=== PATIENT | female | born 2000 | race Two or more races ===

== ENCOUNTER 2022-12-18 21:32 | Inpatient (IN) | payer MEDICAID, OTHER ==
[~2022-12-18] VITALS: Ht 157.5 cm; Wt 95.8 kg
[2022-12-18] MEDS ORDERED: SODIUM CHLORIDE 0.9% 1,000 ML IV ONE (22:30)
[2022-12-18] MEDS ORDERED: ONDANSETRON HCL 4 MG/2 ML VIAL IV ONE (22:30)
[2022-12-18 22:40] LABS: Basophils # (auto) 0 10 ^3/uL (0-0.2); Basophils % (auto) 0.4 % (0.0-2.0); Eosinophils # (auto) 0.1 10 ^3/uL (0-0.8); Hematocrit 39.7 % (36.0-46.0); Hemoglobin 13.4 g/dL (12.2-16.2); Lymphocytes # (auto) 3.1 10 ^3/uL (0.4-5.4); Lymphocytes % (auto) 29.3 % (10.0-50.0); Mean Corpuscular Hemoglobin 28.9 pg (28.0-32.0); Mean Corpuscular Hgb Conc. 33.9 g/dL (32.0-36.0); Mean Corpuscular Volume 85.4 fL (80.0-100.0); Monocytes # (auto) 0.7 10 ^3/uL (0-1.3); Monocytes % (auto) 6.6 % (0.0-12.0); Neutrophils # (auto) 6.6 10 ^3/uL (1.6-8.6); Neutrophils % (auto) 62.7 % (37.0-80.0); Red Blood Cells 4.64 10^6/uL (4.0-5.20); Red Cell Distribution Width 13.4 % (11.8-14.3); White Blood Cell 10.5 10^3/uL (4.4-10.8)
[2022-12-18 22:55] LABS: Albumin 3.7 g/dL (3.4-5.0); BUN/Creatinine Ratio 8.3; Potassium 4.3 mmol/L (3.5-5.1)
[2022-12-18 22:58] LABS: Bilirubin, Total 0.6 mg/dL (0.2-1.0); INR 0.98 (0.9-1.15)
[2022-12-19 00:17] LABS: Urine Bacteria FEW /hpf (None Seen); Urine Blood Negative /uL (Negative); Urine Specific Gravity 1.012 (1.001-1.035); Urine WBC 3 /hpf (0 - 5)
[2022-12-19] MEDS ORDERED: SODIUM CHLORIDE 0.9% 1,000 ML IV ONE (00:45)
[2022-12-19 01:33] LABS: Basophils # (auto) 0.1 10 ^3/uL (0-0.2); Basophils % (auto) 0.4 % (0.0-2.0); Eosinophils # (auto) 0.1 10 ^3/uL (0-0.8); Eosinophils % (auto) 0.4 % (0.0-7.0); Hematocrit 36.9 % (36.0-46.0); Hemoglobin 12.7 g/dL (12.2-16.2); Lymphocytes # (auto) 2.6 10 ^3/uL (0.4-5.4); Lymphocytes % (auto) 18.8 % (10.0-50.0); Mean Corpuscular Hemoglobin 29.7 pg (28.0-32.0); Mean Corpuscular Hgb Conc. 34.4 g/dL (32.0-36.0); Mean Corpuscular Volume 86.3 fL (80.0-100.0); Monocytes # (auto) 0.8 10 ^3/uL (0-1.3); Monocytes % (auto) 5.5 % (0.0-12.0); Neutrophils # (auto) 10.3 10 ^3/uL (1.6-8.6); Neutrophils % (auto) 74.9 % (37.0-80.0); Red Blood Cells 4.28 10^6/uL (4.0-5.20); White Blood Cell 13.8 10^3/uL (4.4-10.8)
[2022-12-19 01:48] LABS: Partial Thromboplastin Time 26.8 sec (24.6-33.4)
[2022-12-19] MEDS ORDERED: MORPHINE SULFATE INJ 2 MG/ml SYRG IV ONE (04:30)
[2022-12-19] MEDS ORDERED: ACETAMINOPHEN 325 MG TAB PO PRN (06:00)
[2022-12-19] MEDS ORDERED: cefTRIAXone 1GM/50ML D5W 50 ML IV ONE (06:00)
[2022-12-19] MEDS ORDERED: DOCUSATE SOD 100 MG CAP PO PRN (06:00)
[2022-12-19] MEDS ORDERED: ONDANSETRON HCL 4 MG/2 ML VIAL IV PRN ×2 (06:00→09:00)
[2022-12-19] MEDS ORDERED: D5W/SOD CHLO 0.9% 1,000 ML IV SCH (06:00)
[2022-12-19] MEDS ORDERED: NITROGLYCERIN 0.4 MG SL TAB SL PRN (06:15)
[2022-12-19] MEDS ORDERED: MORPHINE SULFATE INJ 2 MG/ml SYRG IV PRN (06:15)
[2022-12-19] MEDS ORDERED: IBUP800T27 PO (07:48)
[2022-12-19] MEDS ORDERED: DOCU-94 PO (07:48)
[2022-12-19] MEDS ORDERED: HYDR-4902 PO (07:48)
[2022-12-19] MEDS ORDERED: ONDA-144 PO (07:48)
[2022-12-19] MEDS ORDERED: MIDAZOLAM HCL 2MG/2ML 2ml VIAL (1mg/ml) ONE (07:49)
[2022-12-19] MEDS ORDERED: fentaNYL CITRATE 100 MCG/2 ML VL ONE (07:49)
[2022-12-19] MEDS ORDERED: MEPERIDINE HCL (50 MG/ML) 1 ML VIAL ONE (07:49)
[2022-12-19 07:56] LABS: Basophils # (auto) 0 10 ^3/uL (0-0.2); Basophils % (auto) 0.3 % (0.0-2.0); Eosinophils # (auto) 0.1 10 ^3/uL (0-0.8); Eosinophils % (auto) 0.6 % (0.0-7.0); Hematocrit 39.8 % (36.0-46.0); Hemoglobin 13.3 g/dL (12.2-16.2); Lymphocytes # (auto) 3.2 10 ^3/uL (0.4-5.4); Lymphocytes % (auto) 28.4 % (10.0-50.0); Mean Corpuscular Hemoglobin 28.5 pg (28.0-32.0); Mean Corpuscular Hgb Conc. 33.4 g/dL (32.0-36.0); Mean Corpuscular Volume 85.3 fL (80.0-100.0); Monocytes # (auto) 0.7 10 ^3/uL (0-1.3); Monocytes % (auto) 5.9 % (0.0-12.0); Neutrophils # (auto) 7.3 10 ^3/uL (1.6-8.6); Neutrophils % (auto) 64.8 % (37.0-80.0); Nucleated Red Blood Cells % 0.1 %; Red Blood Cells 4.67 10^6/uL (4.0-5.20); Red Cell Distribution Width 12.9 % (11.8-14.3); White Blood Cell 11.3 10^3/uL (4.4-10.8)
[2022-12-19] MEDS ORDERED: RHO (D) IMMUNE GLOBULIN 300 MCG INJ IM PRN (08:00)
[2022-12-19 08:07] LABS: Calcium 8.8 mg/dL (8.5-10.1); Potassium 3.7 mmol/L (3.5-5.1)
[2022-12-19 08:14] LABS: Albumin 3.8 g/dL (3.4-5.0); BUN/Creatinine Ratio 6.3; Bilirubin, Total 0.8 mg/dL (0.2-1.0); Total Protein 7.1 g/dL (6.4-8.2)
[2022-12-19] MEDS ORDERED: SUCCINYLCHOLINE CHLORIDE 20 MG/ML 10ML VIAL IV ONE (08:34)
[2022-12-19] MEDS ORDERED: PROPOFOL 10 MG/ML 20 ML IV ONE (08:51)
[2022-12-19] MEDS ORDERED: ONDANSETRON HCL 4 MG/2 ML VIAL ONE (08:51)
[2022-12-19] MEDS ORDERED: DexAMETHasone SOD PHOS 10MG/1ML VIAL INJ ONE (08:51)
[2022-12-19] MEDS ORDERED: SUGAMMADEX 200mg/2ml Vial (100MG/ML) IV ONE (08:56)
[2022-12-19] MEDS ORDERED: METOCLOPRAMIDE HCL 5MG/ml INJ 2ml VIAL IV PRN (09:00)
[2022-12-19] MEDS ORDERED: ePHEDrine SULFATE 50 MG/ML AMP IV PRN (09:00)
[2022-12-19] MEDS ORDERED: MIDAZOLAM HCL 2MG/2ML 2ml VIAL (1mg/ml) IV PRN (09:00)
[2022-12-19] MEDS ORDERED: LABETALOL HCL 5 MG/ML 4ML SYRINGE IV PRN (09:00)
[2022-12-19] MEDS ORDERED: MORPHINE SULFATE 4 MG/ML SYR/VIAL IV PRN (09:00)
[2022-12-19] MEDS: HYDROmorphone HCL 2 MG/ML VL/or syr IV PRN ×6 (09:54→17:33)
[2022-12-19] MEDS: HYDROcodone-ACET 5/325MG TAB PO PRN ×2 (12:00→22:25)
[2022-12-19] MEDS: SODIUM CHLORIDE 0.9% 1,000 ML IV SCH ×2 (12:06→14:12)
[2022-12-19] MEDS: METOCLOPRAMIDE HCL 5MG/ml INJ 2ml VIAL IV PRN ×2 (12:27→20:36)
[2022-12-19 13:00] VITALS: BP 114/73
[2022-12-19] MEDS: ONDANSETRON HCL 4 MG/2 ML VIAL IV PRN ×2 (14:11→18:06)
[2022-12-19] MEDS: ceFAZolin 1GM/50ML 50 ML IV SCH ×2 (14:18→21:18)
[2022-12-19] MEDS ORDERED: SERT50TA PO (14:24)
[2022-12-19 17:00] VITALS: BP 122/57
[2022-12-19 20:00] VITALS: BP 113/62
[2022-12-19 21:06] LABS: Basophils # (auto) 0.1 10 ^3/uL (0-0.2); Basophils % (auto) 0.7 % (0.0-2.0); Eosinophils # (auto) 0 10 ^3/uL (0-0.8); Hematocrit 39.5 % (36.0-46.0); Hemoglobin 13.1 g/dL (12.2-16.2); Lymphocytes # (auto) 0.9 10 ^3/uL (0.4-5.4); Lymphocytes % (auto) 5.7 % (10.0-50.0); Mean Corpuscular Hemoglobin 28.8 pg (28.0-32.0); Mean Corpuscular Hgb Conc. 33.2 g/dL (32.0-36.0); Mean Corpuscular Volume 86.7 fL (80.0-100.0); Monocytes # (auto) 0.8 10 ^3/uL (0-1.3); Monocytes % (auto) 4.8 % (0.0-12.0); Neutrophils # (auto) 14.2 10 ^3/uL (1.6-8.6); Neutrophils % (auto) 88.8 % (37.0-80.0); Red Blood Cells 4.56 10^6/uL (4.0-5.20); Red Cell Distribution Width 13.1 % (11.8-14.3)
[2022-12-19 22:00] VITALS: BP_SYST 113; BP_SYST 119; BP_DIAS 51; BP_DIAS 62
[2022-12-20] MEDS: ONDANSETRON HCL 4 MG/2 ML VIAL IV PRN (03:21)
[2022-12-20] MEDS: HYDROmorphone HCL 2 MG/ML VL/or syr IV PRN (03:21)
[2022-12-20 05:00] VITALS: BP 122/62
[2022-12-20] MEDS: ceFAZolin 1GM/50ML 50 ML IV SCH (06:03)
[2022-12-20 07:24] LABS: Basophils # (auto) 0 10 ^3/uL (0-0.2); Basophils % (auto) 0.3 % (0.0-2.0); Eosinophils # (auto) 0 10 ^3/uL (0-0.8); Eosinophils % (auto) 0.1 % (0.0-7.0); Hematocrit 36.4 % (36.0-46.0); Hemoglobin 12.3 g/dL (12.2-16.2); Lymphocytes # (auto) 1.6 10 ^3/uL (0.4-5.4); Lymphocytes % (auto) 14.8 % (10.0-50.0); Mean Corpuscular Hemoglobin 28.8 pg (28.0-32.0); Mean Corpuscular Hgb Conc. 33.9 g/dL (32.0-36.0); Mean Corpuscular Volume 85.1 fL (80.0-100.0); Monocytes # (auto) 0.7 10 ^3/uL (0-1.3); Monocytes % (auto) 6.4 % (0.0-12.0); Neutrophils # (auto) 8.2 10 ^3/uL (1.6-8.6); Neutrophils % (auto) 78.4 % (37.0-80.0); Nucleated Red Blood Cells % 0.1 %; Red Blood Cells 4.27 10^6/uL (4.0-5.20); Red Cell Distribution Width 12.9 % (11.8-14.3); White Blood Cell 10.5 10^3/uL (4.4-10.8)
[2022-12-20] MEDS ORDERED: BISACODYL 10 MG RECT SUPP PR PRN (07:45)
[2022-12-20] MEDS ORDERED: DOCUSATE SOD 100 MG CAP PO PRN (07:45)
[2022-12-20 07:49] LABS: Potassium 3.7 mmol/L (3.5-5.1)
[2022-12-20 07:55] LABS: Albumin 3.3 g/dL (3.4-5.0); Bilirubin, Total 1.5 mg/dL (0.2-1.0); Calcium 8.5 mg/dL (8.5-10.1)
[2022-12-20 09:00] VITALS: BP 108/60
[2022-12-20] MEDS: cefTRIAXone 1GM/50ML D5W 50 ML IV SCH (09:13)
[2022-12-20] MEDS: SODIUM CHLORIDE 0.9% 1,000 ML IV SCH ×3 (09:13→17:22)
[2022-12-20] MEDS: DOCUSATE CALCIUM 240 MG CAP PO SCH (09:14)
[2022-12-20] MEDS: HYDROcodone-ACET 5/325MG TAB PO PRN ×2 (09:14→15:17)
[2022-12-20] MEDS: SIMETHICONE 80 MG CHEWABLE TABLET PO SCH ×3 (12:14→21:48)
[2022-12-20] MEDS: HYDROcodone-ACET 10/325MG TAB PO PRN ×2 (12:38→20:50)
[2022-12-20 13:00] VITALS: BP 126/77
[2022-12-20 17:00] VITALS: BP 122/78
[2022-12-20 22:00] VITALS: BP 136/76
[2022-12-20] MEDS ORDERED: SERTRALINE HCL 50 MG TAB PO SCH (22:00)
[2022-12-21 05:00] VITALS: BP 121/70
[2022-12-21] MEDS: SIMETHICONE 80 MG CHEWABLE TABLET PO SCH (06:05)
[2022-12-21] MEDS: HYDROcodone-ACET 10/325MG TAB PO PRN (06:15)
[2022-12-21] MEDS: cefTRIAXone 1GM/50ML D5W 50 ML IV SCH (06:46)
[2022-12-21 08:00] VITALS: BP 126/66
[2022-12-21 09:00] VITALS: BP 126/66
[2022-12-21] MEDS: DOCUSATE CALCIUM 240 MG CAP PO SCH (09:47)
[2022-12-21 09:50] VITALS: BP 126/66
[2022-12-22 12:46] LABS: Hepatitis C Antibody Negative (Negative)
== END 2022-12-21 11:45 | disposition home or self-care (01) | DRG 547 ==
LOC: ER 21:32 → OVERFLOW 12-19 06:14 → EAST 12-19 11:01
PROVIDERS: ADMIT Nurse Practitioner Family; ATTEND Obstetrics & Gynecology
PROC: 0UT50ZZ Resection of Right Fallopian Tube, Open Approach (ICD-10-PCS; 2022-12-19)
PROC: 10T20ZZ Resection of Products of Conception, Ectopic, Open Approach (ICD-10-PCS; principal; 2022-12-19 07:50)
DX: O00.101 Right tubal pregnancy without intrauterine pregnancy (principal); Z20.822 Contact with and (suspected) exposure to COVID-19
CPT/HCPCS: 36415; 76801; 76817; 80053; 81001; 84702; 85025; 85610; 85730; 86803; 86850; 86900; 86901; 87340; 87426; 96361; 96365; 96375; G0378; J0330; J0690; J0696; J1100; J2250; J2405; J2704; J7042